=== PATIENT | female | born 1985 | race African-American/Black ===

== ENCOUNTER 2019-02-21 02:19 | Emergency (ER) | payer MEDICAID ==
[~2019-02-21] VITALS: Ht 154.9 cm; Wt 73.0 kg
[2019-02-21 05:02] LABS: CLARITY URINE TURBID (CLEAR); KETONES URINE 2+ (NEGATIVE); LEUKOCYTE ESTERASE URINE 3+ (NEGATIVE); NITRITE URINE POSITIVE (NEGATIVE); OCCULT BLOOD URINE 3+ (NEGATIVE); PROTEIN URINE 4+ (NEGATIVE); SPECIFIC GRAVITY URINE 1.043 (1.005-1.030)
[2019-02-21 05:12] LABS: BASOPHILS % 0.4 % (0.0-2.0); EOSINOPHILS % 1.7 % (0.0-5.0); HEMATOCRIT. 25.4 % (36.0-48.0); HEMOGLOBIN. 8.3 g/dL (12.0-16.0); LYMPHOCYTES % 31.1 % (20.0-50.0); MEAN CORPUSCULAR HEMOGLOBIN 24.6 pg (28.0-32.0); MEAN CORPUSCULAR VOLUME 75.4 fL (81.0-99.0); MEAN PLATELET VOLUME 7.9 fl (7.4-10.4); MONOCYTES % 9.5 % (2.0-8.0); NEUTROPHILS % 57.3 % (40.0-76.0); PLATELET 231 x1000/uL (130-400); RED BLOOD CELL COUNT 3.37 mill/uL (4.2-5.4); RED CELL DISTRIBUTION WIDTH 23.1 % (11.6-14.6)
[2019-02-21 05:13] LABS: CHLORIDE 108 mEq/L (98-107)
[2019-02-21 05:14] LABS: COLOR URINE BLOODY (YELLOW)
[2019-02-21 05:30] VITALS: BP 124/70
[2019-02-21 05:36] LABS: B-HCG QUANTITATIVE 30686 mIU/mL (<3)
[2019-02-21 06:31] LABS: PLATELET ESTIMATE NORMAL
== END 2019-02-21 06:00 | disposition left against medical advice (07) ==
LOC: ER 02:19
DX: O23.42 Unspecified infection of urinary tract in pregnancy, second trimester (principal); O46.92 Antepartum hemorrhage, unspecified, second trimester; Z3A.15 15 weeks gestation of pregnancy
CPT/HCPCS: 36415; 76805; 80053; 81003; 81025; 84702; 85025; 86850; 86900; 99284